=== PATIENT | female | born 1950 | race Caucasian/White ===

== ENCOUNTER 2021-03-29 11:41 | Inpatient (IN) | payer MEDICARE ==
[~2021-03-29] VITALS: Ht 157.5 cm; Wt 80.1 kg
--- NOTE | ~2021-03-29 | CON ---
[facility] [address] [place] [address] CONSULTATION Name: TORRES PARTIDA Room: [address] IN M.R.#: [id number] Admission: 03/29/21 Attend Phys: Hermann Gay Discharge: Date of : 48 Report #: [id number] THIS REPORT FOR: cc: Ferdinand Ramirez Steve T. DO Khosla, Parveen K. MD ~ DOC #: [id number] Johnny Person MD DATE OF CONSULTATION: 03/31/2021 HISTORY OF PRESENT ILLNESS: A 71-year-old female patient who was evaluated by me for carotid stenosis. This patient was discussed with Dr. Gillette, the hospitalist and Dr. Baugh, the hospitalist at [facility]. The patient herself provided some history. This patient is somewhat confused. She gives a history that she fell down. It is somewhat unusual event, but it looks like she did not pass out and she did not fall because of any hemiplegia. She started having pain in the left leg and she has a fractured left hip as I understand. A carotid Doppler was done, but the patient says that she does not have any symptoms suggestive of TIA or a stroke. She does not believe she ever had a carotid Doppler before. REVIEW OF SYSTEMS: Positive for COPD. It is a longstanding process and looks like she is on supplemental oxygen. She does have a heart murmur and looks like she is being worked up for aortic stenosis. The record indicates that she does have a history of atrial fibrillation. She does not tell me anything about that. For some reason, she is on carbamazepine and she was confused and she did not give me a history why she is on carbamazepine. She has a prior history of heart attack, total knee replacement, rotator cuff tear, COPD and she still smokes. She has a history of diabetes also. She has a history of hypercholesterolemia and this was her relevant 14-point review of systems, which I can get from this patient or from the patient's chart. PAST MEDICAL HISTORY: Negative for any TIA or a stroke, but the history is not reliable. SOCIAL HISTORY: The patient still smokes. FAMILY HISTORY: Negative for any early age stroke. PHYSICAL EXAMINATION: Her examinations indicate she is alert, but she takes a long time to tell me what month it is and then she changes it to incorrect month. She could not tell me what hospital she is in. Her speech looks intact, although she repeats things, but I am not sure whether it is because of memory problems. She does appear to be short of breath. I do [place] [address] CONSULTATION Name: HELGATORRES Room: [address] IN .R.#: [id number] Admission: 03/29/21 Attend Phys: Hermann Gay Discharge: Date of : 48 Report #: [id number] her baseline. Her cranial nerve examination was difficult to carry out. I can tell about hemianopsia. Neuromuscular examination, she may be trace weak on the right side, but it is tough to tell. I tried to do the position sense. I do not think she cooperated much. Reflexes are symmetrical. Heart does appear to be irregular. She has rhonchi and she is short of breath. Blood pressure is 159/86, respirations 16, pulse is 72, temperature is 97.4. LABORATORY DATA: Indicate a white count of 6.3. Her CT was reviewed and a CT scan is impressive. She has a pretty significant stenosis of the left carotid and she also has a significant stenosis of the right carotid. IMPRESSION: This is an extremely complicated patient on which there is no good option. This patient is going to be on a high risk for complications from the cardiac perspective, from the respiratory perspective. The carotid stenosis further complicates the situation. The data on incidence of stroke after asymptomatic carotid stenosis, after a noncardiac surgery is controversial. In fact, most of the data that shows that asymptomatic carotid stenosis does not show any significant increased risk of stroke compared to the baseline risk. In this patient, the situation is even further difficult. If we need to address the patient's carotid stenosis, that will require a left carotid endarterectomy, then right carotid endarterectomy and then the patient's hip surgery. With her severe COPD, it is very likely she will run into complication in one or the other surgery. I had a long discussion with this patient. I told it does not matter what is done on her if she is on a high risk of having a stroke. She needs to stop smoking, but that is not going to help her in the short run. I suggested that we get an MRI of the brain done. If MRI of the brain demonstrates that she has a stroke and it is in the appropriate location of either right carotid or left carotid, the stenosis should be considered symptomatic. Then, her chances of having a stroke becomes pretty high and the carotid definitely needs to be addressed. She does not have any family and I do not think she is a fully cognitively intact at the moment. The chances of running into complication and stroke is very high, it does not matter what we do and she understands that. In that regard, I think it may be desirable to proceed with the surgery if the stenosis is not symptomatic, but if we go through that route, her blood pressure needs to be kept high during the surgery and it should not drop to prevent collaterals from collapsing. Again, that is [address] [place] [address] CONSULTATION Name: TORRES PARTIDA Room: [address] IN M.R.#: [id number] Admission: 03/29/21 Attend Phys: Hermann Gay Discharge: Date of : 48 Report #: [id number] not an ideal option or even close to it, but that may be what we have to follow. She is agreeable with that and I will see if any family is here, but she says the only person she knows is her sister and she does not talk to her and I will discuss with other consultants tomorrow. Cardiothoracic surgery has been consulted and I will also give them a call tomorrow after the MRI is done. I spent more than 50 minutes of time taking care of this patient today and majority was spent reviewing the extensive imaging study data and the patient's record and counseling the patient about her options and the difficulty with situation. On the basis of MRI, the question also needs to be addressed whether she needs to be on anticoagulation because this patient by record does have atrial fibrillation and heart does appear to be irregular. Thank you very much. MD RYANNE Ceballos/RODERICK By: 2020 [id number] Person MD /eric
[~2021-03-29 11:41] MED LIST: ADVAIR 250-501 EACH INH; ADVAIR HFA115 MCG/21 INH; ALBUTEROL SULFAT4 MG PO; ASA5UEC PO; ASPIRIN81 M2 PO; ATIVAN0.5 MG PO; AVELOX 400 MG400 M1 PO; BENICAR20 MG PO; BUSPAR15 MG PO; BUSPIRONE HCL10 MG PO; CARBAMAZEPINE200 M2 PO; COMBIVENT INH; COMPLETE MULTI1 EAC2 PO; COREG6.25 MG PO; COUMADIN 1MG TAB1 M1 PO; COUMADIN 2 MG TA2 M1 PO; COUMADIN 5 MG TA5 M1 PO; COUMADIN6 MG PO; DALIRESP500 MCG PO; DESYREL150 MG PO; DILTIAZEM 24HR240 M1 PO; DOXYCYCLINE 10100 M1 PO; DUONEB 2.5-0.5 M3 ML INH; EQUETRO200 MG PO; FENTANYL PATCH75 MCG TP; FIBER LAX625 MG PO; FLEXERIL PO; FLONASE 0.05%50 MCG NASAL; FUROSEMIDE 20 M20 MG PO; FUROSEMIDE 40 M40 M1 PO; GLUCOPHAGE1000 MG PO; HYDROCODON-ACE1 EAC5 PO; K-DUR 20 MEQ T20 MEQ PO; LANOXIN 0.120.125 M2 PO; LASIX 40 MG TAB40 M2 PO; LEVAQUIN 750 M750 MG PO; MELOXICAM7.5 MG PO; MUCINEX DM ER1 EAC1 PO; NEURONTIN 300300 M1 PO; NEURONTIN600 MG PO; NEXIUM40 MG PO; NIASPAN 500 MG500 M1 PO; ONDANSETRON HCL4 M3 PO; PENTASA500 MG; PRAVACHOL80 MG PO; PREDNISONE 10 M10 M1 PO; STOOL SOFTENER50 MG PO; TRAZODONE 150150 M1 PO; VENTOLIN HFA 1818 GM INH; VOLTAREN100 GM TP; WELLBUTRIN SR150 MG PO; XANAX 0.5 MG0.5 M1 PO
[2021-03-29 11:46] VITALS: BP 161/76
[2021-03-29] MEDS ORDERED: ZETIA10 MG PO (12:07)
[2021-03-29] MEDS ORDERED: DRIZALMA SPRINK30 MG PO (12:08)
[2021-03-29] MEDS ORDERED: LEVO-T75 MCG PO (12:08)
[2021-03-29] MEDS ORDERED: PROTONIX40 M2 PO (12:08)
[2021-03-29 12:26] LABS: HEMATOCRIT 32.5 % (37.0-47.0); HEMOGLOBIN 10.5 gm/dL (12.0-15.0); MCH 30.2 pg (26.0-34.0); MCHC 32.3 g/dL (28.0-37.0); MCV 93.6 fL (80.0-100.0); MPV 8.6 fl. (7.2-11.1); NUCLEATED RBCS 0 /100WBC; PLATELET COUNT* 271 thou/uL (150-400); RBC 3.47 mil/uL (4.20-5.00); RDW-CV 17.4 % (10.5-14.5); WBC 8.6 thou/uL (4.0-11.0)
[2021-03-29 12:33] LABS: ANION GAP < 0 mmol/L (7-16); BUN 18 mg/dL (7-18); CALCIUM 8.2 mg/dL (8.5-10.1); CHLORIDE 100 mmol/L (98-107); CO2 39 mmol/L (21-32); CREATININE 1.1 mg/dL (0.6-1.3); GLUCOSE 173 mg/dL (70-99); POTASSIUM 4.3 mmol/L (3.5-5.1); SODIUM 138 mmol/L (136-145)
[2021-03-29 12:37] LABS: APTT 29.1 Seconds (25.0-31.3); PROTIME 10.9 Seconds (9.20-11.50)
[2021-03-29 12:38] LABS: ALBUMIN 2.6 g/dL (3.4-5.0); ALKALINE PHOSPHATASE 180 U/L (46-116); SGOT 19 U/L (15-37); SGPT 18 U/L (30-65); TOTAL BILIRUBIN 0.3 mg/dL (<0.1-1.0); TOTAL PROTEIN 7.2 g/dL (6.4-8.2)
[2021-03-29 12:46] LABS: ABSOLUTE LYMPHOCYTES 0.5 thou/uL (0.8-5.3); ABSOLUTE MONOCYTES 0.3 thou/uL (0.0-1.2); ABSOLUTE NEUTROPHILS 7.7 thou/uL (1.6-8.1)
[2021-03-29 12:47] LABS: ANISOCYTOSIS 1+; PLATELET ESTIMATE ADEQUATE
[2021-03-29 16:35] VITALS: BP 152/64
[2021-03-29 18:00] VITALS: BP 114/69
[2021-03-29] MEDS ORDERED: FLEXERIL PO (20:23)
[2021-03-29 20:58] VITALS: BP 105/69
[2021-03-30 04:44] LABS: HEMATOCRIT 31.8 % (37.0-47.0); MCH 29.7 pg (26.0-34.0); MCHC 31.6 g/dL (28.0-37.0); MPV 8.9 fl. (7.2-11.1); RBC 3.38 mil/uL (4.20-5.00); RDW-CV 17.1 % (10.5-14.5); WBC 6.9 thou/uL (4.0-11.0)
[2021-03-30 04:59] LABS: ANION GAP < 0 mmol/L (7-16); BUN 20 mg/dL (7-18); CALCIUM 8.2 mg/dL (8.5-10.1); CHLORIDE 101 mmol/L (98-107); CO2 40 mmol/L (21-32); CREATININE 1.2 mg/dL (0.6-1.3); POTASSIUM 4.6 mmol/L (3.5-5.1); SODIUM 137 mmol/L (136-145)
[2021-03-30 05:08] LABS: GLUCOSE 35 mg/dL (70-99)
[2021-03-30 10:41] VITALS: BP 154/73
[2021-03-30 15:56] VITALS: BP 134/86
[2021-03-30 19:30] VITALS: BP 140/72
[2021-03-31 05:09] VITALS: BP 135/71
[2021-03-31 05:17] LABS: HEMATOCRIT 33.2 % (37.0-47.0); HEMOGLOBIN 10.6 gm/dL (12.0-15.0); MCH 29.7 pg (26.0-34.0); MCV 92.9 fL (80.0-100.0); MPV 8.4 fl. (7.2-11.1); RBC 3.57 mil/uL (4.20-5.00); RDW-CV 17.2 % (10.5-14.5); WBC 6.3 thou/uL (4.0-11.0)
[2021-03-31 05:24] LABS: ANION GAP < 0 mmol/L (7-16); BUN 19 mg/dL (7-18); CALCIUM 8.4 mg/dL (8.5-10.1); CHLORIDE 98 mmol/L (98-107); CO2 40 mmol/L (21-32); GLUCOSE 135 mg/dL (70-99); POTASSIUM 4.5 mmol/L (3.5-5.1); SODIUM 137 mmol/L (136-145)
[2021-03-31 07:35] VITALS: BP 172/69
--- NOTE | 2021-03-31 13:31 | 2DMMODE ---
[place] [address] 2 D/M-MODE ECHOCARDIOGRAM Name: TORRES PARTIDA Room: [address] IN [facility]#: [id number] Admission: 03/29/21 Attend Phys: Juaquin Greco Discharge: Date of : 48 Date of Service: 03/31/21 1331 Report #: [id number] THIS REPORT FOR: cc: Ferdinand Ramirez,Juve Bradley MD [facility] ~ APPROVED REPORT Study performed: 03/31/2021 09:20:48 EXAM: Comprehensive 2D, Doppler, and color-flow Echocardiogram Patient Location: In-Patient Room #: [facility] Status: routine BSA: 1.81 HR: 80 bpm BP: 135/71 mmHg Rhythm: NSR Other Information Study Quality: Good Indications Pre-Op 2D Dimensions IVSd: 11.53 (7-11mm) LVOT Diam: 20.00 (18-24mm) LVDd: 57.68 mm PWd: 10.48 (7-11mm) LVDs: 52.70 (25-40mm) Aortic Root: 29.75 mm Volumes Left Atrial Volume (Systole) LA ESV Index: 63.80 mL/m2 Aortic Valve AoV Peak Rebel.: 2.65 m/s AO Peak Gr.: 28.01 mmHg LVOT Max P.69 mmHg AO Mean Gr.: 15.75 mmHg LVOT Mean P.14 mmHg LVOT Max V: 1.29 m/s AO V2 VTI: 44.73 cm LVOT Mean V: 0.80 m/s TONY (VTI): 1.53 cm2 LVOT V1 VTI: 21.81 cm AI Sibley: 2.52 m/s2 [place] [address] 2 D/M-MODE ECHOCARDIOGRAM Name: TORRES PARTIDA Room: [address] IN ..#: [id number] Admission: 03/29/21 Attend Phys: Juaquin Greco Discharge: Date of : 48 Date of Service: 03/31/21 1331 Report #: [id number] AI PHT: 520.27 ms Mitral Valve E/A Ratio: 0.92 MV Decel. Time: 151.25 ms MV E Max Rebel.: 1.13 m/s MV PHT: 43.86 ms MVA (PHT): 5.02 cm2 TDI E/Lateral E': 16.14 E/Medial E': 16.14 Medial E' Rebel.: 0.07 m/s Lateral E' Rebel.: 0.07 m/s Pulmonary Valve PV Peak Rebel.: 1.55 m/s PV Peak Gr.: 9.64 mmHg Tricuspid Valve RAP Estimate: 5.00 mmHg TR Peak Gr.: 46.68 mmHg RVSP: 51.00 mmHg PA Pressure: 51.00 mmHg Left Ventricle The left ventricle is normal size. Regional wall motion abnormalities are noted with inferobasilar hypo-akinesis. There is normal left ventricular wall thickness. Left ventricular systolic function is moderately decreased. LVEF is 35-40%. Grade I - abnormal relaxation pattern. Right Ventricle Right ventricle is mildly dilated. The right ventricular systolic function is normal. Atria Left atrium is moderately dilated. Right atrium is mildly dilated. Aortic Valve Moderate aortic valve sclerosis. Mild aortic regurgitation. Mild to moderate aortic stenosis. Mitral Valve There is mitral annular calcification. Mild mitral regurgitation. No evidence of mitral valve stenosis. [place] [address] 2 D/M-MODE ECHOCARDIOGRAM Name: HELGATORRES Room: [address]#: [id number] Admission: 03/29/21 Attend Phys: Juaquin Greco Discharge: Date of : 48 Date of Service: 03/31/21 1331 Report #: [id number] The tricuspid valve is normal in structure. Mild tricuspid regurgitation. Moderate pulmonary hypertension. Pulmonic Valve The pulmonary valve is normal in structure. Trace pulmonic regurgitation. Great Vessels The aortic root is normal in size. IVC is normal in size and collapses >50% with inspiration. Pericardium Trace pericardial effusion. <Conclusion> The left ventricle is normal size. Left ventricular systolic function is moderately decreased. LVEF is 35-40%. Grade I - abnormal relaxation pattern. Right ventricle is mildly dilated. Left atrium is moderately dilated. Right atrium is mildly dilated. Moderate aortic valve sclerosis. Mild aortic regurgitation. Mild to moderate aortic stenosis. There is mitral annular calcification. Mild mitral regurgitation. No evidence of mitral valve stenosis. The tricuspid valve is normal in structure. Mild tricuspid regurgitation. Moderate pulmonary hypertension. IVC is normal in size and collapses >50% with inspiration. Trace pericardial effusion. Regional wall motion abnormalities are noted with inferobasilar hypo-akinesis. <ELECTRONICALLY SIGNED> By: Juve Mcintyre MD, FACC 03/31/21 133 30 30 Juve Mcintyre MD, FACC /INF
--- NOTE | 2021-03-31 13:48 | EKG ---
[place] [address] ELECTROCARDIOGRAM REPORT Name: TORRES PARTIDA Room: [address] ADM IN M.R.#: [id number] Admission: 03/29/21 Attend Phys: Juaquin Greco Discharge: Date of : 48 Date of Service: 03/29/21 1155 Report #: [id number] THIS REPORT FOR: //name// [facility] ED Test Date: 2021-03-29 Test Time: 11:55:02 Pat Name: TORRES PARTIDA Department: Room: [facility] Gender: F Collection Supervisor: DUSTIN : 1950 Requested By: Argelia Last Order Number: [id number] MD: Juve Mcintyre Measurements Intervals [place] Rate: 60 P: -83 CO: 124 QRS: -32 QRSD: 176 T: 20 QT: 427 QTc: 427 Interpretive Statements Sinus or ectopic atrial rhythm First-degree AV block Right bundle branch block Baseline wander in lead(s) V3 Possible inferior scar Compared to ECG 02/18/2017 21:47:21 Left ventricular hypertrophy no longer present Electronically Signed On 03-31-2021 13:48:31 CDT by Juve Mcintyre [email or web address] <ELECTRONICALLY SIGNED> By: Juve Mcintyre MD, [facility] 03/31/21 1348 1155 1155 Juve Mcintyre MD, [facility] /EPI
[2021-03-31 17:26] VITALS: BP 159/86
[2021-03-31 21:46] VITALS: BP 171/74
[2021-04-01 07:45] VITALS: BP 197/103
[2021-04-01 14:55] LABS: BE 15.6 mmol/L (-2 to +3); PO2 74.7 mmHg (75.0-100.0); pH 7.415 (7.340-7.450)
[2021-04-01 14:59] LABS: PCO2 68.9 mmHg (35.0-45.0)
[2021-04-01 16:11] VITALS: BP 185/56
[2021-04-01 21:30] VITALS: BP 145/94
== END 2021-04-01 22:10 | disposition short-term general hospital (02) | DRG 542 ==
LOC: M.ERS 11:41 → M.ORTHSURG 13:16 → M.TBA-ER 13:16 → M.ORTHSURG 17:09
PROVIDERS: Family Medicine; Physician Assistant; Psychiatry & Neurology Neuromuscular Medicine; ADMIT Internal Medicine; ATTEND Internal Medicine
PROC: 5A0935A Assistance with Respiratory Ventilation, Less than 24 Consecutive Hours, High Flow/Velocity Cannula (ICD-10-PCS; principal; 2021-03-30)
DX: M80.052A Age-related osteoporosis with current pathological fracture, left femur, initial encounter for fracture (principal); J96.20 Acute and chronic respiratory failure, unspecified whether with hypoxia or hypercapnia; J44.9 Chronic obstructive pulmonary disease, unspecified; I50.9 Heart failure, unspecified; E11.9 Type 2 diabetes mellitus without complications; S72.092A Other fracture of head and neck of left femur, initial encounter for closed fracture; E03.9 Hypothyroidism, unspecified; I48.91 Unspecified atrial fibrillation; I11.0 Hypertensive heart disease with heart failure; I25.10 Atherosclerotic heart disease of native coronary artery without angina pectoris; I48.0 Paroxysmal atrial fibrillation; E78.5 Hyperlipidemia, unspecified; I65.23 Occlusion and stenosis of bilateral carotid arteries; I25.5 Ischemic cardiomyopathy; E11.649 Type 2 diabetes mellitus with hypoglycemia without coma; Z20.822 Contact with and (suspected) exposure to COVID-19; Z96.651 Presence of right artificial knee joint; Z88.0 Allergy status to penicillin; Z88.2 Allergy status to sulfonamides; Z88.8 Allergy status to other drugs, medicaments and biological substances; Z90.49 Acquired absence of other specified parts of digestive tract; Z79.84 Long term (current) use of oral hypoglycemic drugs; Z79.899 Other long term (current) drug therapy; I25.2 Old myocardial infarction